=== PATIENT | male | born 1955 | race Caucasian/White ===

== ENCOUNTER → 2016-07-19 | Outpatient (CLI) | payer BC ==
[~2016-07-19] MED LIST: LIPITOR
[2016-07-19 07:03] LABS: Urine RBC None Seen /hpf (0 - 3)
[2016-07-19 07:26] LABS: Basophils # (auto) 0 uL; Basophils % (auto) 0.1 % (0.0-2.0); Eosinophils # (auto) 0.1 uL; Eosinophils % (auto) 2.3 % (0.0-7.0); Hematocrit 42.6 % (41.0-53.0); Hemoglobin 14.4 g/dL (13.5-17.5); Lymphocytes # (auto) 1.6 uL; Lymphocytes % (auto) 35.3 % (10.0-50.0); Mean Corpuscular Hemoglobin 31.4 pg (28.0-32.0); Mean Corpuscular Hgb Conc. 33.8 g/dL (32.0-36.0); Mean Platelet Volume 9.4 fL (7.4-10.4); Monocytes # (auto) 0.4 uL; Monocytes % (auto) 8.7 % (0.0-12.0); Neutrophils # (auto) 2.4 uL; Neutrophils % (auto) 53.6 % (37.0-80.0); Platelet Count (auto) 254 10^3/uL (140-450); Red Cell Distribution Width 13.3 % (11.6-16.0); White Blood Cell 4.5 10^3/uL (4.4-10.8)
[2016-07-19 07:40] LABS: Urine Bilirubin Negative (Negative); Urine Blood Negative /uL (Negative); Urine Color Yellow (Yellow); Urine Glucose Normal (Normal); Urine Ketone Negative (Negative); Urine Mucus FEW (None Seen); Urine Nitrite Negative (Negative); Urine Squamous Epithelial Cell FEW /hpf (<5); Urine Urobilinogen Normal (Negative); Urine pH 6.5 (5.0-8.0)
[2016-07-19 08:01] LABS: Albumin 3.6 g/dL (3.4-5.0); BUN/Creatinine Ratio 16.1; Bilirubin, Total 0.6 mg/dL (0.2-1.0); Calcium 8.8 mg/dL (8.5-10.1); Potassium 4.5 mmol/L (3.5-5.1); Total Protein 7.2 g/dL (6.4-8.2)
== END | disposition home or self-care (01) ==
LOC: LAB 06:34
PROVIDERS: ATTEND Family Medicine
DX: E78.5 Hyperlipidemia, unspecified (principal); I10 Essential (primary) hypertension; I25.10 Atherosclerotic heart disease of native coronary artery without angina pectoris
CPT/HCPCS: 36415; 80053; 80061; 81001; 83036; 84153; 85025

== ENCOUNTER 2018-08-02 14:49 | Emergency (ER) | payer BC, OTHER ==
[~2018-08-02] VITALS: Ht 175.3 cm; Wt 95.3 kg
[2018-08-02 16:13] VITALS: BP 136/66
== END 2018-08-02 16:15 | disposition home or self-care (01) ==
LOC: ER 14:49
DX: S46.912A Strain of unspecified muscle, fascia and tendon at shoulder and upper arm level, left arm, initial encounter (principal); I10 Essential (primary) hypertension; E78.5 Hyperlipidemia, unspecified; I25.2 Old myocardial infarction; Z88.6 Allergy status to analgesic agent; Z88.1 Allergy status to other antibiotic agents; Z98.61 Coronary angioplasty status; W19.XXXA Unspecified fall, initial encounter; Y93.89 Activity, other specified; Y99.8 Other external cause status; Y92.89 Other specified places as the place of occurrence of the external cause
CPT/HCPCS: 70450; 73030

== ENCOUNTER 2019-06-03 08:34 | Inpatient (IN) | payer BC ==
[~2019-06-03] VITALS: Ht 175.3 cm; Wt 103.8 kg
[2019-06-03] VITALS (8 sets, daily range): BP systolic 109–125; BP diastolic 66–96
[~2019-06-03 08:34] MED LIST changes: +ASCO500T11 PO; +ASPI-404 PO; +CETI1TAB36 PO; -LIPITOR; +LISI-275 PO; +METO25TA93 PO; +MULT-228 PO; +SIMV-13 PO
[2019-06-03] MEDS ORDERED: ceFAZolin 1GM/50ML 100 ML IV ONE (10:27)
[2019-06-03] MEDS ORDERED: PREGABALIN CAPSULE 75 MG CAP ONE (10:27)
[2019-06-03] MEDS ORDERED: ACETAMINOPHEN IV 100 ML IV ONE (10:27)
[2019-06-03] MEDS ORDERED: CELECOXIB 100 MG CAP PO ONE (10:30)
[2019-06-03] MEDS ORDERED: PREGABALIN 25 MG CAP PO ONE (10:30)
[2019-06-03] MEDS ORDERED: fentaNYL CITRATE 100 MCG/2 ML VL ONE (12:08)
[2019-06-03] MEDS ORDERED: MIDAZOLAM HCL 1MG/1ML-2 ML VIAL ONE (12:08)
[2019-06-03] MEDS ORDERED: MORPHINE SULF(PF) 0.5MG/ML 10ML VIAL ONE (12:08)
[2019-06-03] MEDS: BUPIVACAINE W/ EPINEPH 0.25% INJ 50ML MDV ONE ×2 (12:11→14:38)
[2019-06-03] MEDS ORDERED: VANCOMYCIN HCL 1000 MG VL ONE ×2 (12:13→12:22)
[2019-06-03] MEDS ORDERED: TETRACAINE 1% INJ 2 ML VIAL IJ ONE (12:14)
[2019-06-03] MEDS ORDERED: DexAMETHasone SOD PHOS 10MG/1ML VIAL INJ IV ONE (12:17)
[2019-06-03] MEDS ORDERED: PROPOFOL 10 MG/ML 20 ML IV ONE (12:17)
[2019-06-03] MEDS ORDERED: ONDANSETRON HCL 4 MG/2 ML VIAL IV PRN ×2 (13:15→15:00)
[2019-06-03] MEDS ORDERED: ePHEDrine SULFATE 50 MG/ML AMP IV PRN (13:15)
[2019-06-03] MEDS ORDERED: LABETALOL HCL 5 MG/ML 4ML SYRINGE IV PRN (13:15)
[2019-06-03] MEDS ORDERED: DexAMETHasone SOD PHOS 10MG/1ML VIAL INJ IV PRN (13:15)
[2019-06-03] MEDS ORDERED: diphenhdrAMINE HCL 50 MG/1 ML VL IV PRN (13:15)
[2019-06-03] MEDS ORDERED: NALOXONE HCL 0.4 MG/ML VIAL IV PRN (13:15)
[2019-06-03] MEDS ORDERED: NALBUPHINE HCL 10 MG/1ml INJECTION SUBCUT ONE (13:15)
[2019-06-03] MEDS ORDERED: KETOROLAC TROMETH 15 mg/ml 1ML VL IV PRN (13:15)
[2019-06-03] MEDS: LACTATED RINGER'S 1,000 ML IV SCH ×2 (14:46→23:03)
[2019-06-03] MEDS ORDERED: HYDROmorphone HCL 2 MG/ML VL IV PRN (15:00)
[2019-06-03] MEDS ORDERED: OXYCODONE W/ ACETAMINOPHEN 5/325MG TABLET PO PRN (15:00)
[2019-06-03] MEDS ORDERED: MORPHINE SULF INJ 2 MG/ML SYRINGE 1ML IV PRN (15:00)
[2019-06-03] MEDS ORDERED: ACETAMINOPHEN 325 MG TAB PO PRN (15:00)
[2019-06-03] MEDS ORDERED: NITROGLYCERIN 0.4 MG SL TAB SL PRN (15:00)
[2019-06-03] MEDS: ceFAZolin 1GM/50ML 50 ML IV SCH ×2 (16:54→23:13)
[2019-06-03] MEDS: OXYCODONE W/ ACETAMINOPHEN 5/325MG TABLET PO PRN (20:44)
[2019-06-03] MEDS: ATORVASTATIN 20 MG TAB PO SCH (21:28)
[2019-06-03] MEDS: DOCUSATE SOD 100 MG CAP PO SCH (21:28)
[2019-06-03] MEDS: LISINOPRIL 5 MG TAB PO SCH (21:29)
[2019-06-03] MEDS: METOPROLOL SUCCINATE XL 50 MG TAB PO SCH (22:00)
[2019-06-04] VITALS (23 sets, daily range): BP systolic 104–144; BP diastolic 59–87
[2019-06-04] MEDS: ceFAZolin 1GM/50ML 50 ML IV SCH (04:41)
[2019-06-04] MEDS: OXYCODONE W/ ACETAMINOPHEN 5/325MG TABLET PO PRN ×3 (04:42→21:48)
[2019-06-04 06:10] LABS: Hematocrit 37.5 % (41.0-53.0); Hemoglobin 12.4 g/dL (13.5-17.5)
[2019-06-04 06:30] LABS: Potassium 4.6 mmol/L (3.5-5.1)
[2019-06-04 06:33] LABS: BUN/Creatinine Ratio 23.1
[2019-06-04 06:35] LABS: Bilirubin, Total 0.3 mg/dL (0.2-1.0); Total Protein 6.4 g/dL (6.4-8.2)
[2019-06-04] MEDS: DOCUSATE SOD 100 MG CAP PO SCH ×2 (09:52→21:47)
[2019-06-04] MEDS: PANTOPRAZOLE 40 MG TAB PO SCH (09:52)
[2019-06-04] MEDS: ENOXAPARIN SOD 40 MG/0.4 ML SYRINGE SC SCH (09:53)
[2019-06-04] MEDS: LACTATED RINGER'S 1,000 ML IV SCH (14:50)
[2019-06-04] MEDS: METOPROLOL SUCCINATE XL 50 MG TAB PO SCH (21:47)
[2019-06-04] MEDS: ATORVASTATIN 20 MG TAB PO SCH (21:47)
[2019-06-04] MEDS: LISINOPRIL 5 MG TAB PO SCH (21:48)
[2019-06-04] MEDS ORDERED: MORPHINE SULF INJ 2 MG/ML SYRINGE 1ML IV ONE (23:00)
[2019-06-05] MEDS: LACTATED RINGER'S 1,000 ML IV SCH ×2 (01:02→06:46)
[2019-06-05] MEDS: OXYCODONE W/ ACETAMINOPHEN 5/325MG TABLET PO PRN ×2 (04:10→11:04)
[2019-06-05 05:00] VITALS: BP 117/56
[2019-06-05 06:42] LABS: Hematocrit 32.6 % (41.0-53.0); Hemoglobin 11.4 g/dL (13.5-17.5)
[2019-06-05 08:09] VITALS: BP_SYST 100; BP_SYST 122; BP_DIAS 60; BP_DIAS 67
[2019-06-05 08:21] VITALS: BP 143/78
[2019-06-05] MEDS: DOCUSATE SOD 100 MG CAP PO SCH (09:11)
[2019-06-05] MEDS: PANTOPRAZOLE 40 MG TAB PO SCH (09:11)
[2019-06-05] MEDS: ENOXAPARIN SOD 40 MG/0.4 ML SYRINGE SC SCH (09:11)
== END 2019-06-05 11:25 | disposition home or self-care (01) | DRG 470 ==
LOC: OVERFLOW 08:34 → EDSTATUS 13:45 → TELE-WESTW 15:47
PROVIDERS: ADMIT Orthopaedic Surgery Adult Reconstructive Orthopaedic Surgery; ATTEND Orthopaedic Surgery Adult Reconstructive Orthopaedic Surgery
PROC: 0SRB0JZ Replacement of Left Hip Joint with Synthetic Substitute, Open Approach (ICD-10-PCS; principal; 2019-06-04)
DX: M16.12 Unilateral primary osteoarthritis, left hip (principal); E78.5 Hyperlipidemia, unspecified; I10 Essential (primary) hypertension; Z96.652 Presence of left artificial knee joint; M17.12 Unilateral primary osteoarthritis, left knee; R33.9 Retention of urine, unspecified; I25.2 Old myocardial infarction; Z88.5 Allergy status to narcotic agent
CPT/HCPCS: 36415; 72170; 80053; 85014; 85018; 86850; 86900; 86901; C1776; G0378; J0131; J0690; J1100; J2250; J2704